=== PATIENT | female | born 1980 | race Two or more races ===

== ENCOUNTER → 2018-08-18 | Outpatient (CLI) | payer OTHER ==
[~2018-08-18] MED LIST: CHOL10003 PO; IBUP-1223 PO; LACT1CAP37 PO; PNV51CAP2 PO
[2018-08-18 09:44] LABS: BASOPHILS # (AUTO) 0.06 x10^3/uL (0-0.1); BASOPHILS % (AUTO) 1 % (0-1); EOSINOPHILS # (AUTO) 0.27 x10^3/uL (0-0.4); EOSINOPHILS % (AUTO) 4 % (1-7); LYMPHOCYTES # (AUTO) 2.11 x10^3/uL (1-3.4); LYMPHOCYTES % (AUTO) 29 % (22-44); MD NO; MEAN CORPUSCULAR HEMOGLOBIN 31.9 pg (27.0-34.8); MEAN CORPUSCULAR HGB CONC 34.2 g/dL (32.4-35.8); MEAN CORPUSCULAR VOLUME 93.1 fL (80-100); MEAN PLATELET VOLUME 8.1 fL (7.4-10.4); MONOCYTES # (AUTO) 0.56 x10^3/uL (0.2-0.8); MONOCYTES % (AUTO) 8 % (2-9); NEUTROPHILS # (AUTO) 4.21 x10^3/uL (1.8-6.8); NEUTROPHILS % (AUTO) 58 % (42-75); PLATELET COUNT 339 x10^3/uL (130-400); RED BLOOD COUNT 4.48 x10^6/uL (3.82-5.3)
== END | disposition home or self-care (01) ==
LOC: STAR 08:43
PROVIDERS: ATTEND Obstetrics & Gynecology
DX: Z01.818 Encounter for other preprocedural examination (principal); N70.11 Chronic salpingitis
CPT/HCPCS: 36415; 84703; 85025

== ENCOUNTER 2018-08-24 05:27 | Day surgery (SDC) | payer OTHER ==
[~2018-08-24] VITALS: Ht 165.1 cm; Wt 77.2 kg
[2018-08-24] MEDS ORDERED: LACTATED RINGERS 1,000 ML IV SCH (06:05)
[2018-08-24 06:24] LABS: HCG UR SG 1.025 (1.003-1.030)
[2018-08-24 06:30] VITALS: BP 99/67
[2018-08-24] MEDS ORDERED: BUPIVACAINE 0.25% ONE (07:00)
[2018-08-24] MEDS ORDERED: EPINEPHRINE 1 MG/ML, 1ML ONE (07:00)
[2018-08-24] MEDS ORDERED: FENTANYL PF 250 MCG/5ML ONE (07:16)
[2018-08-24] MEDS ORDERED: MIDAZOLAM 1 MG/ML, 2ML ONE (07:16)
[2018-08-24] MEDS ORDERED: PROPOFOL 10 MG/ML, 20ML ONE (07:17)
[2018-08-24] MEDS ORDERED: ROCURONIUM 10MG/ML,5ML ONE (07:17)
[2018-08-24] MEDS ORDERED: DEXAMETHASONE 4 MG/ML, 1ML ONE (07:17)
[2018-08-24] MEDS ORDERED: SUCCINYLCHOLINE 20 MG/ML, 10ML ONE (07:17)
[2018-08-24] MEDS ORDERED: ONDANSETRON 2MG/ML, 2ML ONE (07:17)
[2018-08-24] MEDS ORDERED: SCOPOLAMINE PATCH, 1.5MG PATCH.TD72 TD ONE (07:30)
[2018-08-24] MEDS ORDERED: ACETAMINOPHEN 500 MG TABLET PO ONE (07:30)
[2018-08-24] MEDS ORDERED: DIAZEPAM 5 MG TABLET PO ONE (07:30)
[2018-08-24] MEDS ORDERED: MEPERIDINE/PF 50 MG/ML ONE (08:51)
[2018-08-24] MEDS ORDERED: OXYcodone 5 MG/5 ML ORAL.SOL UDC ONE (08:51)
[2018-08-24] MEDS ORDERED: FENTANYL PF 100 MCG/2ML ONE (08:51)
[2018-08-24] MEDS ORDERED: EPHEDRINE 50 MG/ML, 1ML IVPush PRN (09:00)
[2018-08-24] MEDS ORDERED: HYDROmorphone 2 MG/ML, 1ML IVPush PRN (09:00)
[2018-08-24] MEDS ORDERED: PROMETHAZINE 12.5 MG SUPP PR PRN (09:00)
[2018-08-24] MEDS ORDERED: OXYcodone 5 MG/5 ML ORAL.SOL UDC PO PRN (09:00)
[2018-08-24] MEDS ORDERED: DIAZEPAM 5 MG/ML, 2ML IVPush PRN (09:00)
[2018-08-24] MEDS ORDERED: FENTANYL PF 100 MCG/2ML IV PRN (09:00)
[2018-08-24] MEDS ORDERED: ONDANSETRON ODT 8 MG PO PRN (09:00)
[2018-08-24] MEDS ORDERED: MIDAZOLAM 1 MG/ML, 2ML IV PRN (09:00)
[2018-08-24] MEDS ORDERED: hydrALAzine 20 MG/ML, 1ML IV PRN (09:00)
[2018-08-24] MEDS ORDERED: MEPERIDINE/PF 25MG/0.5ML IVPush PRN (09:00)
[2018-08-24] MEDS ORDERED: LABETALOL 5MG/ML, 20ML IV PRN (09:00)
[2018-08-24] MEDS ORDERED: ALBUTEROL SULFATE 2.5 MG/3 ML NPPB PRN (09:00)
[2018-08-24] MEDS ORDERED: MORPHINE SULFATE 4 MG/ML, 1ML IVPush PRN (09:00)
[2018-08-24] MEDS ORDERED: PROMETHAZINE 25 MG/ML, 1ML IV PRN (09:00)
[2018-08-24] MEDS ORDERED: HALOPERIDOL 5 MG/ML IV PRN (09:00)
[2018-08-24] MEDS ORDERED: ONDANSETRON 2MG/ML, 2ML IV PRN (09:00)
== END 2018-08-24 11:40 | disposition home or self-care (01) ==
LOC: OUT 05:27
PROVIDERS: ATTEND Obstetrics & Gynecology
DX: N70.11 Chronic salpingitis (principal)
CPT/HCPCS: 36415; 58661; 81025; 86850; 86900; 88302; J0171; J0330; J1100; J2175; J2250; J2405; J2704; J3010; J3490; J7120

== ENCOUNTER 2019-07-19 11:11 | Outpatient (CLI) | payer OTHER ==
[~2019-07-19] VITALS: Ht 165.1 cm; Wt 78.0 kg
[2019-07-19 11:17] VITALS: BP 107/56
== END 2019-07-19 23:59 | disposition home or self-care (01) ==
LOC: LDOP 11:11
PROVIDERS: ATTEND Obstetrics & Gynecology
DX: Z34.90 Encounter for supervision of normal pregnancy, unspecified, unspecified trimester (principal); Z3A.00 Weeks of gestation of pregnancy not specified; Z88.5 Allergy status to narcotic agent
CPT/HCPCS: 99211; G0463

== ENCOUNTER 2019-07-25 12:18 | Outpatient (CLI) | payer OTHER ==
[~2019-07-25] VITALS: Ht 165.1 cm; Wt 78.6 kg
[2019-07-25 12:32] VITALS: BP 111/58
== END 2019-07-25 13:55 | disposition home or self-care (01) ==
LOC: LDOP 12:18
PROVIDERS: ATTEND Obstetrics & Gynecology
DX: O09.519 Supervision of elderly primigravida, unspecified trimester (principal); Z3A.00 Weeks of gestation of pregnancy not specified
CPT/HCPCS: 59025; 76815; 99211; G0463

== ENCOUNTER 2019-09-21 06:28 | Inpatient (IN) | payer OTHER ==
[~2019-09-21] VITALS: Ht 165.1 cm; Wt 80.0 kg
[2019-09-21] MEDS ORDERED: MISOPROSTOL 25 MCG TABLET ONE (07:35)
[2019-09-21] MEDS ORDERED: OXYTOCIN 30U/ 0.9% NaCL 500ML 500 ML IV ONE (07:37)
[2019-09-21] MEDS ORDERED: OXYTOCIN 30U/ 0.9% NaCL 500ML 500 ML IV PRN (07:37)
[2019-09-21] MEDS ORDERED: D5%-LACTATED RINGERS 1,000 ML IV SCH (07:37)
[2019-09-21] MEDS ORDERED: MISOPROSTOL 25 MCG TABLET VG PRN (08:00)
[2019-09-21] MEDS ORDERED: ONDANSETRON 2MG/ML, 2ML IVPush PRN ×2 (08:00→23:00)
[2019-09-21] MEDS ORDERED: SODIUM CHLORIDE FLUSH 10ML SYR IVF PRN (08:00)
[2019-09-21] MEDS ORDERED: TERBUTALINE 1 MG/ML, 1ML IVPush PRN (08:00)
[2019-09-21] MEDS ORDERED: TERBUTALINE 1 MG/ML, 1ML SQ PRN (08:00)
[2019-09-21] MEDS ORDERED: FENTANYL PF 100 MCG/2ML IVPush PRN (08:00)
[2019-09-21 08:12] LABS: BASOPHILS # (AUTO) 0.05 x10^3/uL (0-0.1); BASOPHILS % (AUTO) 1 % (0-1); EOSINOPHILS # (AUTO) 0.19 x10^3/uL (0-0.4); EOSINOPHILS % (AUTO) 3 % (1-7); LYMPHOCYTES # (AUTO) 1.48 x10^3/uL (1-3.4); LYMPHOCYTES % (AUTO) 19 % (22-44); MD NO; MEAN CORPUSCULAR HGB CONC 32.8 g/dL (32.4-35.8); MEAN CORPUSCULAR VOLUME 94.3 fL (80-100); MEAN PLATELET VOLUME 8.1 fL (7.4-10.4); MONOCYTES # (AUTO) 0.67 x10^3/uL (0.2-0.8); MONOCYTES % (AUTO) 9 % (2-9); NEUTROPHILS # (AUTO) 5.48 x10^3/uL (1.8-6.8); NEUTROPHILS % (AUTO) 70 % (42-75); PLATELET COUNT 231 x10^3/uL (130-400); RED BLOOD COUNT 4.08 x10^6/uL (3.82-5.3); RED CELL DISTRIBUTION WIDTH 13.2 % (9.6-15.2)
[2019-09-21 08:20] VITALS: BP 127/78
[2019-09-21] MEDS ORDERED: LIDOCAINE 1%, 20ML ONE (10:42)
[2019-09-21] MEDS ORDERED: MISOPROSTOL 200 MCG TABLET ONE (10:42)
[2019-09-21] MEDS ORDERED: NEWBORN KIT ONE (10:57)
[2019-09-21] MEDS: LACTATED RINGERS 1,000 ML IV SCH ×3 (11:45→22:33)
[2019-09-21] MEDS ORDERED: OXYTOCIN 30U/ 0.9% NaCL 500ML 500 ML ONE (11:47)
[2019-09-21] MEDS ORDERED: FENTANYL PF 100 MCG/2ML ONE (17:36)
[2019-09-21] MEDS ORDERED: FENTANYL/BUPIV./NS/PF 250 ML EPIDCONT SCH ×2 (20:16→22:33)
[2019-09-21] MEDS ORDERED: LACTATED RINGERS 1,000 ML IVBOLUS PRN ×2 (20:30→23:00)
[2019-09-21] MEDS ORDERED: FENTANYL PF 500 MCG, BUPIVACAINE/PF 0.5%, 30ML 62.5 ML in SODIUM CHLORIDE 0.9% 177.5 ML EPIDCONT SCH (21:00)
[2019-09-21] MEDS ORDERED: BUPIVACAINE 0.25% ONE (21:16)
[2019-09-21] MEDS ORDERED: EPHEDRINE 50 MG/ML, 1ML IVPush PRN (23:00)
[2019-09-21] MEDS ORDERED: DIPHENHYDRAMINE 50 MG/ML, 1ML IVPush PRN (23:00)
[2019-09-21] MEDS ORDERED: NALOXONE 0.4 MG/ML, 1ML IVPush PRN (23:00)
[2019-09-22] MEDS ORDERED: OXYTOCIN 30U/ 0.9% NaCL 500ML 500 ML IV SCH (00:11)
[2019-09-22] MEDS ORDERED: ONDANSETRON 2MG/ML, 2ML IV PRN (00:30)
[2019-09-22] MEDS ORDERED: ACETAMINOPHEN 325 MG TABLET PO PRN (00:30)
[2019-09-22] MEDS ORDERED: METOCLOPRAMIDE 5 MG/ML, 2ML IV PRN (00:30)
[2019-09-22] MEDS ORDERED: SIMETHICONE 80 MG CHEW TAB PO PRN (00:30)
[2019-09-22] MEDS ORDERED: OXYcodone/APAP 5/325MG TABLET PO PRN ×2 (00:30)
[2019-09-22] MEDS ORDERED: DOCUSATE 100 MG CAPSULE PO PRN (00:30)
[2019-09-22] MEDS ORDERED: MISOPROSTOL 200 MCG TABLET PR PRN (00:30)
[2019-09-22] MEDS ORDERED: METHYLERGONOVINE 0.2 MG/ML IM PRN (00:30)
[2019-09-22] MEDS ORDERED: CARBOPROST TROMETHAMINE 250 MCG/ML, 1ML IM PRN (00:30)
[2019-09-22] MEDS ORDERED: OXYTOCIN 30U/ 0.9% NaCL 500ML 500 ML ONE (00:53)
[2019-09-22 02:10] VITALS: BP 97/61
[2019-09-22] MEDS: LACTATED RINGERS 1,000 ML IV SCH (06:33)
[2019-09-22 07:10] VITALS: BP 98/62
[2019-09-22 07:46] LABS: BASOPHILS # (AUTO) 0.13 x10^3/uL (0-0.1); BASOPHILS % (AUTO) 1 % (0-1); EOSINOPHILS # (AUTO) 0.08 x10^3/uL (0-0.4); EOSINOPHILS % (AUTO) 1 % (1-7); LYMPHOCYTES # (AUTO) 1.82 x10^3/uL (1-3.4); LYMPHOCYTES % (AUTO) 16 % (22-44); MD NO; MEAN CORPUSCULAR HEMOGLOBIN 31.4 pg (27.0-34.8); MEAN CORPUSCULAR HGB CONC 33.3 g/dL (32.4-35.8); MEAN CORPUSCULAR VOLUME 94.4 fL (80-100); MEAN PLATELET VOLUME 8.7 fL (7.4-10.4); MONOCYTES # (AUTO) 0.89 x10^3/uL (0.2-0.8); MONOCYTES % (AUTO) 8 % (2-9); NEUTROPHILS # (AUTO) 8.27 x10^3/uL (1.8-6.8); NEUTROPHILS % (AUTO) 74 % (42-75); PLATELET COUNT 221 x10^3/uL (130-400); RED BLOOD COUNT 3.98 x10^6/uL (3.82-5.3); RED CELL DISTRIBUTION WIDTH 13.3 % (9.6-15.2)
[2019-09-22] MEDS: PRENATAL VIT/IRON/FA 1 EACH TABLET PO SCH (08:55)
[2019-09-22] MEDS: IBUPROFEN 600 MG TABLET PO PRN ×2 (09:32→20:42)
[2019-09-22 12:05] VITALS: BP 127/77
[2019-09-22 16:00] VITALS: BP 116/76
[2019-09-22 20:09] VITALS: BP 112/72
[2019-09-23 08:45] VITALS: BP 115/77
[2019-09-23] MEDS: PRENATAL VIT/IRON/FA 1 EACH TABLET PO SCH (10:19)
[2019-09-23] MEDS: IBUPROFEN 600 MG TABLET PO PRN (10:19)
[2019-09-23] MEDS ORDERED: OXYC-302 PO (11:37)
[2019-09-23] MEDS ORDERED: IBUP-1222 PO (11:37)
[2019-09-23] MEDS ORDERED: DOCU-131 PO (11:37)
== END 2019-09-23 12:10 | disposition home or self-care (01) | DRG 807 ==
LOC: LDIP 06:28 → 2NW 09-22 01:53
PROVIDERS: ADMIT Obstetrics & Gynecology; ATTEND Obstetrics & Gynecology
PROC: 0HQ9XZZ Repair Perineum Skin, External Approach (ICD-10-PCS; principal; 2019-09-22)
PROC: 10E0XZZ Delivery of Products of Conception, External Approach (ICD-10-PCS; 2019-09-22)
PROC: 10907ZC Drainage of Amniotic Fluid, Therapeutic from Products of Conception, Via Natural or Artificial Opening (ICD-10-PCS; 2019-09-22)
DX: O36.5930 Maternal care for other known or suspected poor fetal growth, third trimester, not applicable or unspecified (principal); Z37.0 Single live birth; O69.1XX0 Labor and delivery complicated by cord around neck, with compression, not applicable or unspecified; Z3A.37 37 weeks gestation of pregnancy; O70.0 First degree perineal laceration during delivery; M54.9 Dorsalgia, unspecified; G89.29 Other chronic pain; O26.893 Other specified pregnancy related conditions, third trimester
CPT/HCPCS: 36415; S0020; 85025; 86592; 86850; 86900; G0378; J3010; J3490; J2590; J7050; J7120